=== PATIENT | female | born 1980 | race Caucasian/White ===

== ENCOUNTER → 2017-03-19 | Outpatient (CLI) | payer BC ==
[~2017-03-19] MED LIST: ACHD5005 PO; HYDR1TAB PO; IBP600T1 PO; OMEP-10 PO; RABE20TA PO
--- NOTE | 2017-03-19 10:38 | Diagnostic Imaging Report ---
EXAMINATION: Right breast ultrasound. INDICATION: Right breast lump in the 9 o'clock zone and periareolar region. FINDINGS: There is an oval hypoechoic lesion measuring 0.7 x 0.2 x 0.4 cm with increased through transmission and no internal vascularity with color Doppler, in favor of a complicated cyst. This is at the palpable area at the 9 o'clock zone 7 cm from the nipple. The four-quadrants and retroareolar region demonstrate no significant abnormality otherwise. A breast implant is seen. IMPRESSION: The palpable lesion is a 7 mm elongated hypoechoic lesion at the 9 o'clock zone favored to be a complicated cyst. A 6 month followup ultrasound is recommended to ensure stability. ACR BI-RADS Category 3: Probably benign findings. Dictated by: Dictated on workstation # [id number]
--- NOTE | 2017-03-19 10:49 | Diagnostic Imaging Report ---
EXAMINATION: Bilateral diagnostic mammogram with tomography. The current study was also evaluated with a Computer Aided Detection (CAD) system. COMPARISON: No prior studies are available for comparison. INDICATION: Palpable lump in the lateral aspect of the right breast. FINDINGS: Bilateral symmetric breast implants are seen. The breast tissue is heterogeneously dense which may reduce mammographic sensitivity. There is no mass, architectural distortion, or suspicious cluster of calcifications seen. IMPRESSION: No mammographic evidence of malignancy. The ultrasound evaluation is pending. ACR BI-RADS Category 0: Incomplete. (Needs additional imaging evaluation). Result letter will be mailed to the patient. Note: At least 10% of breast cancer is not imaged by mammography. Dictated by: Dictated on workstation # [id number]
== END ==
LOC: RAD 08:10
PROVIDERS: ATTEND Nurse Practitioner Family
DX: N60.01 Solitary cyst of right breast (principal)
CPT/HCPCS: 76641; 77066

== ENCOUNTER → 2017-04-05 | Outpatient (CLI) | payer BC ==
--- NOTE | 2017-04-05 19:50 | Diagnostic Imaging Report ---
EXAMINATION: Three views of the lumbar spine. INDICATION: Low back pain. FINDINGS: There is satisfactory alignment of the lumbar spine. Minimal right convexity curvature is seen around the thoracolumbar junction. The vertebral body heights are preserved. There are preserved disc heights as well. Surgical clips in the upper right abdomen are seen. The SI joints appear symmetric. IMPRESSION: Minimal right convexity scoliosis centered around the thoracolumbar junction. Dictated by: Dictated on workstation # [id number]
== END ==
LOC: RAD 16:14
PROVIDERS: ATTEND Nurse Practitioner Family
DX: M54.5 Low back pain (principal)
CPT/HCPCS: 72100

== ENCOUNTER → 2017-05-29 | Outpatient (CLI) | payer BC ==
--- NOTE | 2017-05-29 11:48 | Diagnostic Imaging Report ---
PROCEDURE: MRI lumbar spine. TECHNIQUE: Multiplanar, multisequence MRI of the lumbar spine was performed without contrast. INDICATION: Back pain. FINDINGS: The alignment of the posterior spinal line is satisfactory. The vertebral body heights are preserved. Disc heights are also preserved. There is no significant disc desiccation. The bone marrow signal is within normal limits. The cauda equina and conus medullaris appear grossly unremarkable. T12/L1: There is no disc herniation, no spinal canal or foraminal stenosis. L1/2: There is no disc herniation. There is vfeb-ux-xuzvruga facet hypertrophy. No central canal, lateral recess, or foraminal stenosis. L2/3: There is no disc herniation. There is moderate facet hypertrophy. No central canal or lateral recess stenosis. No foraminal narrowing. L3/4: There is no disc herniation. The facet joints demonstrate moderate bilateral hypertrophy. No central canal or lateral recess stenosis. No foraminal stenosis. L4/5: There is a minimal disc bulge, and moderate facet hypertrophy is seen. No central canal stenosis. There is mild bilateral lateral recess stenosis. The foramina demonstrate no significant stenosis. L5/S1: There is a mild disc bulge, and thbv-gk-vuxsxixe facet hypertrophy is seen. There is prominent epidural fat seen with tapering of the thecal sac along the lower aspect of L5 level resulting in crowded appearance of the cauda equina with no significant CSF seen. There is mild bilateral lateral recess stenosis. The foramina demonstrate no significant stenosis. When compared to 09/28/2015, there is increased epidural fat seen around L5/S1 level. IMPRESSION: 1. Epidural lipomatosis at L5/S1 level resulting in tapering of the thecal sac and crowded appearance of the cauda equina nerve roots at this level. 2. Moderate facet hypertrophy in the lower lumbar spine and minimal disc herniations at L4/5 and L5/S1 levels. Dictated by: Dictated on workstation # [id number]
== END ==
LOC: RAD 08:40
PROVIDERS: ATTEND Nurse Practitioner Family
DX: D17.79 Benign lipomatous neoplasm of other sites (principal); M48.07 Spinal stenosis, lumbosacral region; M53.82 Other specified dorsopathies, cervical region
CPT/HCPCS: 72148

== ENCOUNTER → 2017-05-31 | Outpatient (CLI) | payer BC ==
--- NOTE | 2017-06-01 14:59 | Diagnostic Imaging Report ---
EXAM: Nuclear medicine thyroid imaging and uptake. DATE: June 01, 2017. INDICATION: 37-year-old female, abnormal thyroid function tests. COMPARISON: None. FINDINGS: 199 ?Ci of I-123 was administered. Subsequent scintigraphic images of the thyroid were obtained in multiple projections. 6 and 24-hour thyroid uptake rise were obtained. 4 hour thyroid uptake is calculated at 28%. 24-hour thyroid uptake is calculated at 66%. There is diffuse radiotracer uptake throughout the right and left lobes of the thyroid. There is no identified radiotracer avid or photopenic nodule. IMPRESSION: 1. Abnormally increased thyroid uptake values with diffuse iodine uptake by the thyroid gland without identified radiotracer avid or photopenic nodule. Findings may potentially be seen with Graves' disease. Recommend correlation with laboratory analysis. Dictated by: Dictated on workstation # [id number]
== END ==
LOC: CARD 10:54
DX: R94.6 Abnormal results of thyroid function studies (principal)
CPT/HCPCS: 78014

== ENCOUNTER 2018-03-19 13:49 | Outpatient (CLI) | payer BC ==
[~2018-03-19] VITALS: Ht 157.5 cm; Wt 56.7 kg
[2018-03-19] MEDS ORDERED: HYDR-3820 PO (14:08)
== END 2018-03-19 14:12 | disposition home or self-care (01) ==
LOC: PREOP 13:49
PROVIDERS: ATTEND Obstetrics & Gynecology
DX: Z01.818 Encounter for other preprocedural examination (principal)

== ENCOUNTER 2018-03-21 07:40 | Day surgery (SDC) | payer BC ==
[~2018-03-21] VITALS: Ht 157.5 cm; Wt 56.7 kg
[~2018-03-21 07:40] MED LIST changes: +HYDR-3820 PO
[2018-03-21] MEDS ORDERED: BUPIVACAINE 0.25% 30 ML (SENSORCAINE) VIAL ONE (07:54)
[2018-03-21 08:20] VITALS: BP 85/41
[2018-03-21] MEDS ORDERED: fentaNYL INJECTION 100 MCG/2 ML AMP ONE (08:21)
[2018-03-21] MEDS ORDERED: MIDAZOLAM 2 MG/2 ML (VERSED) VIAL ONE (08:21)
[2018-03-21] MEDS: LACTATED RINGERS 1,000 ML IV PRN ×2 (08:22→10:00)
[2018-03-21] MEDS ORDERED: proPOfol 200 MG/20 ML (DIPRIVAN) VIAL IV ONE (08:24)
[2018-03-21] MEDS ORDERED: LIDOCAINE PF 2% 5 ML (XYLOCAINE) VIAL ONE (08:24)
[2018-03-21] MEDS ORDERED: ROCURONIUM 10 MG/ML 5 ML SYRINGE IV ONE (08:24)
[2018-03-21] MEDS ORDERED: FAMOTIDINE 20MG/2ML IV (PEPCID) IV ONE (08:30)
[2018-03-21] MEDS ORDERED: D5 LR IV SOLUTION 1,000 ML IV SCH (09:29)
[2018-03-21] MEDS ORDERED: KETOROLAC 30 MG/ML VIAL IVP ONE (09:30)
[2018-03-21] MEDS ORDERED: ONDANSETRON 4 MG/2 ML (SDV) Z0FRAN IVP PRN ×2 (09:30→10:45)
[2018-03-21] MEDS ORDERED: HYDROcodone/APAP 5 MG/325 MG (LORTAB) TAB PO PRN (09:30)
--- NOTE | 2018-03-21 09:31 | Discharge Inst-Women's Service ---
Discharge Inst-Women's Serv Depart Medication/Instructions New, Converted or Re-Newed RX: RX on Chart Consults/Follow Up Additional Follow Up: Yes Orders/Referrals DR. Conley in 7-10 days Activity Activity: Activity as Tolerated Driving Instructions: No Driving for 1 Week NO SMOKING: NO SMOKING Nothing Inside Vagina: No Douching, No [place], No Tampons Diet Discharge Diet: No Restrictions Symptoms to Report to : Bleeding Excessive, Pain Increased, Fever Over 101 Degrees F, Vaginal Bleeding Increase, Questions/Concerns For Any Problems or Questions: Contact Your Physician Skin/Wound Care Infection Signs and Symptoms: Increased Redness, Foul Odor of Wound, Increased Drainage, Skin Itchy or Has a Rash, Increased Swelling, Temperature Above 101 F Operative Area Clean and Dry: Keep Incision Clean/Dry Stitches/Mt/Dermabond: Dermabond, Care of Stitches Bathing Instructions: AMIRA Lawrence DO Mar 21, 2018 09:31
[2018-03-21] MEDS ORDERED: IBUP-1773 PO (09:32)
[2018-03-21] MEDS ORDERED: ACHD5005 PO (09:32)
--- NOTE | 2018-03-21 09:32 | Progress Note-Pre Operative ---
Pre-Operative Progress Note H&P Reviewed The H&P was reviewed, patient examined and no changes noted. Date Seen by Provider: Mar 21, 2018 Time Seen by Provider: 09:15 Date H&P Reviewed: Mar 21, 2018 Time H&P Reviewed: 09:00 Pre-Operative Diagnosis: CPP, Dysmenorrhea, Endometrial thickening AMIRA CORRAL DO Mar 21, 2018 09:32
[2018-03-21] MEDS ORDERED: SEVOFLURANE (ULTANE) 15 ML INHAL SOLN ONE ×2 (09:56→10:05)
[2018-03-21] MEDS ORDERED: DEXAMETHASONE 10 MG/ML (DECADRON) 1 ML VIAL ONE (09:56)
[2018-03-21] MEDS ORDERED: PHENYLEPHRINE 100 MCG/ML 10 ML (ANESTHESIA) SYR ONE (10:00)
[2018-03-21] MEDS ORDERED: GLYCOPYRROLATE 0.2 MG/ML (ROBINUL) 2 ML VIAL ONE (10:21)
[2018-03-21] MEDS ORDERED: NEOSTIGMINE 1 MG/ML 5 ML SYRINGE ONE (10:21)
[2018-03-21] MEDS ORDERED: MEPERIDINE (DEMEROL) INJ 50 MG/ML IVP ONE (10:45)
[2018-03-21] MEDS ORDERED: morphine INJ 10 MG/ML 1ML (SYR OR VIAL) IVP ONE (10:45)
[2018-03-21] MEDS ORDERED: HYDROmorphone 2 MG/ML VIAL (DILAUDID) IV ONE (10:45)
[2018-03-21] MEDS ORDERED: morphine INJ 10 MG/ML 1ML (SYR OR VIAL) ONE (10:46)
[2018-03-21] MEDS ORDERED: HYDROmorphone 2 MG/ML VIAL (DILAUDID) ONE (11:04)
[2018-03-21 11:35] VITALS: BP 96/51
[2018-03-21 12:05] VITALS: BP 87/41
[2018-03-21 12:35] VITALS: BP 91/40
[2018-03-21 12:55] VITALS: BP 91/40
--- NOTE | 2018-03-21 18:31 | Anesthesia-General Post-Op ---
General Patient Condition Mental Status/LOC: Same as Preop Cardiovascular: Satisfactory Nausea/Vomiting: Absent Respiratory: Satisfactory Pain: Controlled Complications: Absent Post Op Complications Complications None Follow Up Care/Instructions Patient Instructions None needed. Anesthesia/Patient Condition Patient Condition Patient was seen this morning after the procedure and she was doing well, no complaints, stable vital signs, no apparent adverse anesthesia problems. ANDREINA STACY DO Mar 21, 2018 18:31
--- NOTE | 2018-03-21 20:26 | OPERATIVE REPORT ---
DATE OF SERVICE: PREOPERATIVE DIAGNOSIS: A 37-year-old female with chronic pelvic pain and endometrial thickening. POSTOPERATIVE DIAGNOSES: A 37-year-old female with chronic pelvic pain and endometrial thickening plus endometriosis implants of the pelvic peritoneum. PROCEDURE: Laparoscopic cauterization of endometrial implants, dilatation and curettage as well as bilateral salpingectomy. SURGEON: Amira Corral DO TOOL REPAIR TECHNICIAN: KAREN Pace. ANESTHESIA: General endotracheal. ESTIMATED BLOOD LOSS: Minimal. URINE OUTPUT: 100 mL clear at the end of the procedure. FLUIDS: 1600 mL lactated Ringer solution. FINDINGS: A grossly normal appearing external female genitalia, cervix and endometrial tissue. Diffuse peritoneal endometriosis implants of the pelvic peritoneum including the broad ligament ovarian fossa bilaterally as well as the posterior cul-de-sac as well as implants on the ovary itself. SPECIMENS SENT: Bilateral fallopian tubes. INDICATIONS FOR PROCEDURE: This 37-year-old female was a patient that came to my office for a second opinion. She was told to have a hysterectomy by another provider and wanted to know if this was the best case scenario for her. She had never been diagnosed with endometriosis in the past, but based on her chronic pelvic pain symptoms, she had been recommended to do so. I discussed with the patient rather than proceeding directly with hysterectomy to try and attempt more conservative measures first. She had been on suppressive therapy in the past; however, never had laparoscopy to confirm the diagnosis. I discussed with the patient diagnostic laparoscopy with possible bilateral salpingo-oophorectomy, possible bilateral salpingectomy as well as D and C due to some endometrial thickening and some heavy menstrual cycles. The patient was agreeable to do this. All of the risks of the procedure were discussed with the patient in detail including risk of bleeding, infection, damaging surrounding structures including but not limited to bowel, bladder, ureter, kidneys, postoperative expectations, recovery timeframe and the potential for complications and need for reoperation. After all of her questions were answered, consent was obtained in the preoperative area and the patient was taken to the operating room. OPERATIVE REPORT IN DETAIL: Once in the operating room, general anesthesia was found to be adequate. She was placed in dorsal lithotomy position, prepped and draped in normal sterile fashion. I first placed the Prescott catheter using sterile technique and then took my attention to the pelvis where a weighted speculum was inserted to the patient's vagina. A right angle retractor was used to visualize the cervix, which was grasped with coaptation using a long Allis clamp and I then performed a paracervical block at 3 and 9 o'clock position using 0.25% Marcaine, 5 mL were used at each injection site. Care was taken to aspirate before injecting, after which I sound the uterine cavity depth, which was found to be 8 cm. I then gently dilated the cervix using Hegar dilators to approximately 1 cm dilatation, at which point I performed a gentle curettage of the endometrium. I collected tissue as endometrial curettings. I then placed a [employer] uterine manipulator in the endometrial cavity with the setting of a 7 cm cavity depth and deployed the balloon excellent uterine manipulation. I then removed all other instruments from the patient's vagina rather than the manipulator and the Prescott catheter, which was left in place. I then performed a change of gloves. I took my attention to the abdomen where infraumbilically I infiltrated the area using 0.25% Marcaine to make a 5 mm incision and directed the Veress needle through the incision until the intraperitoneal placement was confirmed using saline drop test. I then proceeded with insufflation using CO2 gas. Opening pressure of 5 mmHg was noted. I proceeded to maximum pressure of 15 mmHg, at which point I removed the Veress needle and introduced a 5 mm blunt trocar into the peritoneal cavity, which I am unable to confirm using the laparoscope. Once in place, I am able to place the patient in steep Trendelenburg after a brief scan of the upper abdominal anatomy and found no gross abnormalities. Once I am able to visualize the pelvis, there was diffuse peritoneal endometriosis noted. I placed two separate trocars, one is in the left lower quadrant, one is suprapubic. They were placed in similar fashion. The suprapubic trocar was a 12 mm trocar. The skin was infiltrated using 0.25% Marcaine in both of these spots. Incisions were made using a knife and the trocars were placed under direct visualization of the laparoscope. Once these were in place, I am able to cauterize all of the endometriosis implants. I am able to identify using hook cautery in monopolar style. I then removed the fallopian tubes starting at the proximal isthmic connecting point to the uterus. I bipolar cauterized and transected using the LigaSure and take this down the mesosalpinx to the distal ampullary connection point, which was all made hemostatic using the LigaSure device. I do this bilaterally and remove the tubes through the 12 mm trocar site. Once this was done, there was no active bleeding noted from any of my dissection planes. I copiously irrigated the pelvis using normal saline. There was once again no active bleeding noted and I had the patient taken out of steep Trendelenburg. I removed the smaller trocars under direct visualization of the laparoscope. The 12 mm trocar was left in place. I introduced a 10 mL 0.25% Marcaine for postoperative pain management as well as to release insufflation from the site. I then closed the fascia of the larger trocar site using 0 Vicryl suture in interrupted fashion. I then closed the skin using 4-0 Monocryl running subcuticular. Dermabond was applied to that incision. The other two smaller 5 mm incisions are closed using Dermabond only. Prescott catheter was removed. Kronner uterine manipulator was removed. The patient tolerated the procedure and was taken to recovery area in stable condition. Lap and sponge counts were correct at the end of procedure. Instrument counts were correct as well. Job ID: [id number] DocumentID: [id number] Dictated Date: 03/21/2018 12:27:13 Milling Machine Set Up Operator Date: 03/21/2018 20:26:18 Dictated By: AMIRA CORRAL DO
== END 2018-03-21 12:55 | disposition home or self-care (01) ==
LOC: SDC 07:40
PROVIDERS: ATTEND Obstetrics & Gynecology
DX: N80.3 Endometriosis of pelvic peritoneum (principal); N80.1 Endometriosis of ovary; R93.89 Abnormal findings on diagnostic imaging of other specified body structures; J45.909 Unspecified asthma, uncomplicated; K21.9 Gastro-esophageal reflux disease without esophagitis; F17.210 Nicotine dependence, cigarettes, uncomplicated
CPT/HCPCS: 84703; 86850; 86900; 86901; 87081; 88302; 88305; 94664

== ENCOUNTER 2020-04-15 16:55 | Emergency (ER) | payer BC ==
[~2020-04-15] VITALS: Ht 157.5 cm; Wt 52.2 kg
[~2020-04-15 16:55] MED LIST changes: +ACHYD1T PO; -HYDR-3820 PO; +IBUP-1773 PO
[2020-04-15 17:11] VITALS: BP 103/60
--- NOTE | 2020-04-15 17:39 | ED Integumentary General ---
General Chief Complaint: Skin/Wound Problems Stated Complaint: RASH;ITCHING Nursing Triage Note: PT AMB TO TRIAGE WITH COMPLAINT OF RASH THAT STARTED TWO DAYS AGO. STATES HAD COLD SORE POP UP TWO DAYS AGO ALSO. HAD ACYCLOVIR PRESCRIBED AND STARTED YESTERDAY. 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 History of Present Illness Date Seen by Provider: Apr 15, 2020 Time Seen by Provider: 17:25 Initial Comments 39-year-old female reports severe pruritus to her neck. She is noted small rash to her neck and upper back. She has significant history of different integumentary problems including psoriasis. She has been using hydrocortisone cream with no improvement. She is concerned because she has had MRSA in the past. She had work on her tattoo, right arm. She sees Dr. Cameron and had Botox injections to her lips. She started Acyclovir yesterday for cold sore, but didn't take it today. The itching became worse this afternoon when she got off work. She has not taken any medications for the itching. Timing/Duration: just prior to arrival Severity: mild Location: face, torso Possible Cause: no cause identified Associated Symptoms: denies symptoms Allergies and Home Medications Allergies Coded Allergies: Cephalexin Monohydrate (Verified Allergy, Unknown, 04/11/15) gluten (Verified Allergy, Unknown, 03/19/18) Home Medications Hydrocodone Bit/Acetaminophen 1 Tab Tab, 2 TAB PO Q6HR PRN for PAIN-MODERATE Prescribed by: AMIRA CORRAL on 03/21/18 0932 Ibuprofen 600 Mg Tablet, 600 MG PO Q6H Prescribed by: AMIRA CORRAL on 03/21/18 0932 Mupirocin 22 Gm Oint...g., 22 GM TP TID Prescribed by: HAYDEN HYATT on 04/15/20 1811 Patient Home Medication List Home Medication List Reviewed: Yes Review of Systems Review of Systems Constitutional: no symptoms reported, see HPI Skin: see HPI, rash (chest, neck and upper back) All Other Systems Reviewed Negative Unless Noted: Yes Past Fsnzrkb-Zvelyg-Efrslg Hx Past Med/Social Hx: Reviewed Nursing Past Med/Soc Hx Patient Social History Alcohol Use: Occasionally Uses Number of Drinks Today: AA Alcohol Beverage of Choice: Beer Recreational Drug Use: Yes (clean x 2 years) Drug of Choice: MARIJUANA Type Used: Cigarettes Former Smoker, Quit: Mar 04, 2018 Recent Foreign Travel: No Contact w/Someone Who Travel: No Recent Infectious Disease Expo: No Recent Hopitalizations: No Immunizations Up To Date Tetanus Booster (TDap): Unknown PED Vaccines UTD: Yes Date of Influenza Vaccine: Mar 07, 2018 Seasonal Allergies Seasonal Allergies: Yes Past Medical History Surgeries: Yes (c/s x2, d&c x2, sinus sx, breast augmentation with revision, ) Bladder Surgery, Section, Gallbladder, Tonsillectomy, Tracheostomy Respiratory: No Cardiac: No Neurological: No Reproductive Disorders: Yes Gastrointestinal: Yes Irritable Bowel Musculoskeletal: Yes Fibromyalgia, Chronic Back Pain Endocrine: No Cancer: No Psychosocial: Yes Anxiety, Depression Integumentary: No Blood Disorders: Yes (anemia) Physical Exam Vital Signs Vital Signs - First Documented 04/15/20 17:11 Temp 36.5 Pulse 99 Resp 20 B/P (MAP) 103/60 (74) Pulse Ox 96 O2 Delivery Room Air Capillary Refill : Less Than 3 Seconds General Appearance: WD/WN, no apparent distress Neck: non-tender, full range of motion, supple, normal inspection; No lymphadenopathy (R), No lymphadenopathy (L) Cardiovascular: normal peripheral pulses, regular rate, rhythm Respiratory: chest non-tender, lungs clear Extremities: normal range of motion, non-tender, normal inspection, normal capillary refill Neurologic/Psychiatric: no motor/sensory deficits, alert, normal mood/affect, oriented x 3 Skin: normal color, warm/dry Skin Problem Location: face, torso (Neck and upper back) Skin Problem Character: petechial, urticarial Lymphatic: no adenopathy Progress/Results/Core Measures Results/Orders My Orders Orders - HAYDEN HYATT Diphenhydramine Injection (Benadryl Inje (04/15/20 17:45) Medications Given in ED Current Medications Medications Dose Ordered Sig/Ross Route Start Time Stop Time Status Last Admin Dose Admin Diphenhydramine HCl 50 mg ONCE ONCE IM 04/15/20 17:45 04/15/20 17:46 DC 04/15/20 17:55 50 MG Vital Signs/I&O 04/15/20 17:11 Temp 36.5 Pulse 99 Resp 20 B/P (MAP) 103/60 (74) Pulse Ox 96 O2 Delivery Room Air Blood Pressure Mean: 74 Departure Impression Primary Impression: Rash Additional Impression: Pruritus Disposition: HOME, SELF-CARE Condition: Improved Departure-Patient Inst. Decision time for Depature: 18:05 Referrals: COLLIN DUBOIS MD (PCP/Family) Primary Care Physician Patient Instructions: Skin Rash (DC) Add. Discharge Instructions: Take Benadryl 25 mg every 8 hours as needed for itching. Use antibiotic ointment to areas of concern. You can take Aveeno bath soaks to help with the itching. Follow-up with your primary care provider if symptoms are not improving or worsen. Return to the emergency department for new, urgent health care needs. All discharge instructions reviewed with patient and/or family. Voiced understanding. Scripts Mupirocin (Mupirocin) 22 Gm Oint...g. 22 GM TP TID, #1 TUBE 0 Refills Prov: HAYDEN HYATT 04/15/20 HAYDEN HYATT Apr 15, 2020 17:39
[2020-04-15] MEDS ORDERED: diphenhydrAMINE 50 MG/ML INJ (BENADRYL) IM ONE (17:45)
[2020-04-15] MEDS ORDERED: MUPI22OI2 TP (18:11)
== END 2020-04-15 18:15 | disposition home or self-care (01) ==
LOC: EDUNIT# 16:55 → ER 16:57
DX: R21 Rash and other nonspecific skin eruption (principal); L29.8 Other pruritus; G89.29 Other chronic pain; M54.9 Dorsalgia, unspecified; Z88.1 Allergy status to other antibiotic agents; Z87.891 Personal history of nicotine dependence; Z79.891 Long term (current) use of opiate analgesic
CPT/HCPCS: 99284

== ENCOUNTER 2020-05-06 06:44 | Outpatient (RCR) | payer BC ==
[~2020-05-06 06:44] MED LIST changes: +MUPI22OI2 TP
== END 2020-05-07 09:59 | disposition home or self-care (01) ==
LOC: PREOP 06:44
PROVIDERS: ATTEND Obstetrics & Gynecology
DX: Z01.812 Encounter for preprocedural laboratory examination (principal); N80.9 Endometriosis, unspecified; Z20.828 Contact with and (suspected) exposure to other viral communicable diseases
CPT/HCPCS: 87635

== ENCOUNTER 2020-05-10 06:08 | Day surgery (SDC) | payer BC ==
[2020-05-10] VITALS (10 sets, daily range): BP systolic 91–109; BP diastolic 34–73
[~2020-05-10] VITALS: Ht 157.5 cm; Wt 52.2 kg
[2020-05-10] MEDS ORDERED: LACTATED RINGERS 1,000 ML IV SCH (06:15)
[2020-05-10] MEDS ORDERED: CLINDAMYCIN 900 MG/50 ML IVPB 50 ML IV ONE (06:15)
[2020-05-10] MEDS ORDERED: LACTATED RINGERS 1,000 ML IV PRN (06:15)
[2020-05-10] MEDS ORDERED: MIDAZOLAM 2 MG/2 ML (VERSED) VIAL IV ONE (07:00)
[2020-05-10 07:05] LABS: BASOPHILS # (AUTO) 0.1 10^3/uL (0.0-0.1); BASOPHILS % (AUTO) 1 % (0-10); EOSINOPHILS # (AUTO) 0.1 10^3/uL (0.0-0.3); EOSINOPHILS % (AUTO) 2 % (0-10); HEMATOCRIT 41 % (35-52); LYMPHOCYTES # (AUTO) 2.4 10^3/uL (1.0-4.0); LYMPHOCYTES % (AUTO) 33 % (12-44); MEAN CORPUSCULAR HEMOGLOBIN 31 pg (25-34); MEAN CORPUSCULAR HGB CONC 34 g/dL (32-36); MEAN CORPUSCULAR VOLUME 90 fL (80-99); MEAN PLATELET VOLUME 10.7 fL (9.0-12.2); MONOCYTES # (AUTO) 0.5 10^3/uL (0.0-1.0); MONOCYTES % (AUTO) 7 % (0-12); NEUTROPHILS # (AUTO) 4.2 10^3/uL (1.8-7.8); NEUTROPHILS % (AUTO) 57 % (42-75); PLATELET COUNT 201 10^3/uL (130-400); WHITE BLOOD COUNT 7.4 10^3/uL (4.3-11.0)
[2020-05-10] MEDS ORDERED: BUPIVACAINE 0.25% 30 ML (SENSORCAINE) VIAL ONE ×2 (07:07→07:56)
[2020-05-10] MEDS ORDERED: fentaNYL INJECTION 100 MCG/2 ML AMP ONE (07:08)
[2020-05-10] MEDS ORDERED: MIDAZOLAM 2 MG/2 ML (VERSED) VIAL ONE (07:08)
[2020-05-10] MEDS ORDERED: metroNIDAZOLE 500MG/100ML IVPB 100 ML ONE (07:18)
--- NOTE | 2020-05-10 07:25 | Progress Note-Pre Operative ---
Pre-Operative Progress Note H&P Reviewed The H&P was reviewed, patient examined and no changes noted. Date Seen by Provider: May 10, 2020 Time Seen by Provider: 07:25 Date H&P Reviewed: May 10, 2020 Time H&P Reviewed: 07:25 Pre-Operative Diagnosis: CPP, Endometriosis AMIRA CORRAL DO May 10, 2020 07:25
[2020-05-10] MEDS ORDERED: ZOLPIDEM 5 MG (AMBIEN) TAB PO PRN (07:30)
[2020-05-10] MEDS ORDERED: HYDROcodone/APAP 7.5 MG/325 MG (LORTAB, LORCET PLUS) TABLET PO PRN (07:30)
[2020-05-10] MEDS ORDERED: CHLORASEPTIC LOZENGE MM PRN (07:30)
[2020-05-10] MEDS ORDERED: SIMETHICONE 80 MG (MYLICON) CHEW PO PRN (07:30)
[2020-05-10] MEDS ORDERED: DOCUSATE SODIUM 100 MG (COLACE) CAP PO PRN (07:30)
[2020-05-10] MEDS ORDERED: ANTACID SUSP 30 ML UDC (MYLANTA) PO PRN (07:30)
[2020-05-10] MEDS ORDERED: ONDANSETRON 4 MG/2 ML (SDV) Z0FRAN IV PRN (07:30)
--- NOTE | 2020-05-10 07:37 | Discharge Inst-Women's Service ---
Discharge Inst-Women's Serv Depart Medication/Instructions New, Converted or Re-Newed RX: RX on Chart Problems Reviewed?: Yes Consults/Follow Up Additional Follow Up: Yes Orders/Referrals Dr. Conley in 7-10 days, and in 8 weeks Activity Activity: Activity as Tolerated Driving Instructions: No Driving for 1 Week NO SMOKING: NO SMOKING Nothing Inside Vagina: No Douching, No [place], No Tampons Diet Discharge Diet: No Restrictions Symptoms to Report to : Bleeding Excessive, Pain Increased, Fever Over 101 Degrees F, Vaginal Bleeding Increase, Questions/Concerns For Any Problems or Questions: Contact Your Physician Skin/Wound Care Infection Signs and Symptoms: Increased Redness, Foul Odor of Wound, Increased Drainage, Skin Itchy or Has a Rash, Increased Swelling, Temperature Above 101 F Operative Area Clean and Dry: Keep Incision Clean/Dry Stitches/Mt/Dermabond: Dermabond, Care of Stitches Bathing Instructions: AMIRA Lawrence DO May 10, 2020 07:37
[2020-05-10] MEDS ORDERED: FLUC200T PO (07:40)
[2020-05-10] MEDS ORDERED: LEVO1CAP PO (07:40)
[2020-05-10] MEDS ORDERED: ALPR0.254 PO (07:40)
[2020-05-10] MEDS ORDERED: HYDR-3820 PO (07:40)
[2020-05-10] MEDS ORDERED: FAMO-119 PO (07:40)
[2020-05-10] MEDS ORDERED: DIPH25CA79 PO (07:40)
[2020-05-10] MEDS ORDERED: BUSP15TA60 PO (07:40)
[2020-05-10] MEDS ORDERED: CETI10TA49 PO (07:40)
[2020-05-10] MEDS ORDERED: CHOL400T29 PO (07:40)
[2020-05-10] MEDS ORDERED: TPR25T PO (07:40)
[2020-05-10] MEDS ORDERED: BENZ1LOZ64 MM (07:42)
[2020-05-10] MEDS ORDERED: SIME80TA16 PO (07:42)
[2020-05-10] MEDS ORDERED: HYDR-34 PO (07:42)
[2020-05-10] MEDS ORDERED: IBUP-844 PO (07:42)
[2020-05-10] MEDS ORDERED: DCS100C PO (07:42)
[2020-05-10] MEDS ORDERED: LIDOCAINE PF 2% 5 ML (XYLOCAINE) VIAL ONE (09:16)
[2020-05-10] MEDS ORDERED: proPOfol 200 MG/20 ML (DIPRIVAN) VIAL IV ONE (09:16)
[2020-05-10] MEDS ORDERED: ONDANSETRON 4 MG/2 ML (SDV) Z0FRAN ONE (09:16)
[2020-05-10] MEDS ORDERED: KETOROLAC 30 MG/ML VIAL ONE (09:26)
[2020-05-10] MEDS: LACTATED RINGERS 1,000 ML IV SCH ×2 (09:29→12:56)
[2020-05-10] MEDS: KETOROLAC 30 MG/ML VIAL IV PRN ×2 (09:29→15:48)
[2020-05-10] MEDS ORDERED: fentaNYL INJECTION 100 MCG/2 ML AMP IVP ONE (09:45)
[2020-05-10] MEDS ORDERED: morphine INJ 10 MG/ML 1ML (SYR OR VIAL) IVP ONE (09:45)
[2020-05-10] MEDS ORDERED: ROCURONIUM 10 MG/ML 5 ML SYRINGE IV ONE (09:57)
[2020-05-10] MEDS ORDERED: SEVOFLURANE (ULTANE) 15 ML INHAL SOLN ONE ×2 (09:57→09:59)
--- NOTE | 2020-05-10 10:30 | NUR ---
Report from Kerrie Hopkins RN. Pt resting in bed. Vital signs taken. Physical assessment obtained. Fresh ice water given. SCDs plugged in. No further needs at this time.
--- NOTE | 2020-05-10 14:30 | NUR ---
Catheter removed. Pt up to bathroom with assist to put in contacts. Ice pack refilled. No further needs at this time.
--- NOTE | 2020-05-10 16:30 | NUR ---
Pt up to bathroom and urinating. Fresh tea and ice given to patient. No further needs at this time.
--- NOTE | 2020-05-10 17:26 | OPERATIVE REPORT ---
DATE OF SERVICE: PREOPERATIVE DIAGNOSES: 1. A 40-year-old female with chronic pelvic pain. 2. Dyspareunia. 3. Endometriosis. POSTOPERATIVE DIAGNOSES: 1. A 40-year-old female with chronic pelvic pain. 2. Dyspareunia. 3. Endometriosis. PROCEDURES PERFORMED: Robotic-assisted total laparoscopic hysterectomy with bilateral salpingo-oophorectomy. SURGEON: Rian Corral DO. ANESTHESIA: General endotracheal. ESTIMATED BLOOD LOSS: Minimal. URINE OUTPUT: 400 mL clear at the end of procedure. FLUIDS: 2200 mL lactated Ringer's solution. FINDINGS: Grossly normal-appearing external female genitalia, grossly normal appearing upper abdominal anatomy. The pelvic peritoneum is littered with different implants of endometriosis, both dark and hemosiderin laden as well as endometrioid appearing. This is covering the fallopian tubes, ovaries, posterior cul-de-sac, vesicouterine peritoneum and some implants even noted of the rectum and sigmoid colon. There was an enlargement of the right ovary consistent with a right ovarian cyst. Left ovary appears grossly normal with the exception of some endometriosis implants. SPECIMEN SENT: Uterus, bilateral fallopian tubes and ovaries. INDICATIONS FOR PROCEDURE: This 40-year-old female is a patient, who had sought care in my office over a year ago for chronic pelvic pain and pain with intercourse. Her initial evaluation involved a laparoscopy, which revealed an endometriosis. We discussed at that point due to her age, trying more conservative measures and doing Depot Lupron in the meantime. In the past year, we have attempted Depot Lupron. She had some improvement in her symptoms, but is wanting more definitive therapy. We had extensively counseled her throughout the year about the process of hysterectomy. Risks of the procedure were discussed in the preoperative area including the risk of bleeding, infection, damage to the surrounding structures including, but not limited to bowel, bladder, ureter, kidneys, postoperative complications that may occur, possible need for reoperation, recovery time, risk from anesthesia and even . After everything was discussed with the patient in detail, consent was obtained in the preoperative area and the patient was taken to the operating room. OPERATIVE REPORT IN DETAIL: Once in the operating room, general anesthesia was found to be adequate. She was placed in dorsal lithotomy position, prepped and draped in a normal sterile fashion, where a timeout was performed. A Prescott catheter was placed using a sterile technique. A weighted speculum was inserted to the patient's vagina. A right-angled retractor was used to visualize the cervix, which was grasped at 12 o'clock position using a long Allis clamp and 0 Vicryl suture was then placed at the anterior lip of the cervix and Allis clamp was removed. The Vicryl suture was then used as my retraction point. I then gently sound the uterine cavity, depth was found to be 7 cm. I then selected a 6 cm Venus uterine manipulator tip and a 3 cm colpotomy ring. I advanced the manipulator tip into the uterus deploying the balloon and advanced the colpotomy ring around the vaginal fornix, excellent manipulation was noted on bimanual examination at that point using the Venus uterine manipulator. I then removed all the other instruments from the patient's vagina. I performed change of gloves and took my attention to the abdomen, where supraumbilically, I infiltrated this area using 0.25% Marcaine. I made an 8 mm incision through a previously existing laparoscopic scar using a knife. Once this incision was made, I directed Veress needle through the incision, intraperitoneal placement was confirmed using saline drop test. An opening pressure of 2 mmHg was noted. I proceeded to maximum pressure of 15 mmHg, at which point, I removed the Veress needle and introduced an 8 mm laparoscopic da Adelita camera trocar. Once this was in place, I was able to confirm intraperitoneal placement using da Adelita laparoscope. A brief scan of the upper abdominal anatomy appears to be grossly normal. I then had the patient placed in a steep Trendelenburg, which allowed me to identify all my pelvic anatomy as defined in my findings above. I then placed two lateral trocars approximately 8 cm lateral to my supraumbilical trocar. These were both 8 mm trocars and were placed under similar fashion to my umbilical trocar. Once both these trocars were in place, I brought in the da Adelita robot and docked in an appropriate fashion. I placed the da Adelita vessel sealer in the left hand and monopolar frances in the right hand. I performed the following dissection bilaterally. Before starting the dissection, I identified the ureters on the lateral pelvic sidewall in an attempt to stay clear of these throughout my dissection and removal of the uterus and ovaries. I then identified the infundibulopelvic ligament, I performed the following dissection bilaterally. Starting at the infundibulopelvic ligament, I bipolar cauterized and transected using the vessel sealer. I then grasped the round ligament. I bipolar cauterized and transected this using the vessel sealer. I then grasped the entire broad ligament, which I was able to bipolar cauterized and transected using the vessel sealer down to the level of the lower uterine segment, at which point I the anterior and posterior leaflets of the broad ligament. The anterior leaflet dissection was taken around the anterior vaginal fornix, the posterior leaflet was taken around the posterior vaginal fornix. This allowed me to skeletonize the uterine vessels laterally, which I then bipolar cauterized and transected using a vessel sealer. I then created a colpotomy at 12 o'clock position using monopolar frances and took this circumferentially around the vaginal fornix amputating the cervix, uterus, bilateral fallopian tubes and ovaries from the vagina. The entire specimen was then removed through the vagina. I then closed the lateral vaginal apices of the vaginal cuff using 2-0 Vicryl suture in a [id number] fashion colposuspending the uterosacral ligaments. I then closed the remainder of the vaginal cuff using 2-0 V-Loc in a running fashion, after which there was no active bleeding noted from any of my dissection planes. I then undocked the da Adelita robot and proceeded with the remainder of the case laparoscopically. I copiously irrigated the pelvis using normal saline. Once again, there was no active bleeding noted from any of my dissection planes. I placed FloSeal hemostatic agent over all my planes of dissection and then had the patient taken out of steep Trendelenburg. I removed the lateral trocars under direct visualization of the laparoscope. The supraumbilical trocar was left in place to release insufflation and to introduce 10 mL of 0.25% Marcaine into the peritoneal cavity for postoperative pain management. I then removed this trocar as well. The skin was reapproximated using 4-0 Monocryl in interrupted subcuticular stitches. Dermabond was applied to incision and Band-Aids were placed over the incisions as well. Prescott catheter was left in place. The patient tolerated the procedure well and was taken to the recovery area in a stable condition. Lap and sponge counts were correct at the end of the procedure. Instrument counts were correct as well. A 600 mg of clindamycin and 500 mg of Flagyl were given preoperatively for infection prophylaxis. Job ID: [id number] DocumentID: [id number] Dictated Date: 05/10/2020 10:29:50 Photo Engraver Date: 05/10/2020 17:26:18 Dictated By: RIAN CORRAL DO
[2020-05-10] MEDS ORDERED: diphenhydrAMINE 50 MG/ML INJ (BENADRYL) IVP ONE (17:45)
[2020-05-10] MEDS ORDERED: diphenhydrAMINE 50 MG/ML INJ (BENADRYL) ONE (17:49)
--- NOTE | 2020-05-10 18:30 | NUR ---
Discharge instructions given to pt. Reminded pt to call Dr. Conley's office for follow-up appointment. Medication scripts given to patient. PHS given to patient. Pt verbalizes understanding and signs that discharge instructions were given. IV removed. Tip intact.
--- NOTE | 2020-05-10 18:55 | NUR ---
Pt discharged from unit in stable condition accompanied by this RN.
[2020-05-11] MEDS ORDERED: IBUPROFEN 600 MG (MOTRIN) TAB PO SCH (00:15)
--- NOTE | 2020-05-11 09:53 | Anesthesia-General Post-Op ---
General Patient Condition Mental Status/LOC: Same as Preop Cardiovascular: Satisfactory Nausea/Vomiting: Absent Respiratory: Satisfactory Pain: Controlled Complications: Absent Post Op Complications Complications None Follow Up Care/Instructions Patient Instructions None needed. Anesthesia/Patient Condition Patient Condition Patient is doing well, no complaints, stable vital signs, no apparent adverse anesthesia problems. No complications reported per nursing. RICHARD LEE CRNA May 11, 2020 09:53
== END 2020-05-10 18:55 ==
LOC: SDC 06:08 → WS 10:30 → SDC 18:55
PROVIDERS: ATTEND Obstetrics & Gynecology
DX: N83.201 Unspecified ovarian cyst, right side (principal); N83.202 Unspecified ovarian cyst, left side; G89.29 Other chronic pain; N94.10 Unspecified dyspareunia; N80.3 Endometriosis of pelvic peritoneum; N94.12 Deep dyspareunia; N94.5 Secondary dysmenorrhea; J45.909 Unspecified asthma, uncomplicated; Z79.51 Long term (current) use of inhaled steroids; Z88.1 Allergy status to other antibiotic agents; Z88.8 Allergy status to other drugs, medicaments and biological substances; Z72.0 Tobacco use; Z80.6 Family history of leukemia
CPT/HCPCS: 36415; 84703; 85025; 86850; 86900; 86901; 87081; 94664

== ENCOUNTER 2020-06-21 20:40 | Observation (INO) | payer BC ==
[~2020-06-21] VITALS: Ht 157.5 cm; Wt 51.2 kg
[~2020-06-21 20:40] MED LIST changes: +ALPR0.254 PO; +BENZ1LOZ64 MM; +BUSP15TA60 PO; +CETI10TA49 PO; +CHOL400T29 PO; +DCS100C PO; +DIPH25CA79 PO; +FAMO-119 PO; +FLUC200T PO; +HYDR-34 PO; +HYDR-3820 PO; +IBUP-844 PO; +LEVO1CAP PO; +LORazepam INJ 2 MG/ML (ATIVAN) VIAL ONE; +SIME80TA16 PO; +TPR25T PO
[2020-06-21] MEDS ORDERED: LORazepam INJ 2 MG/ML (ATIVAN) VIAL IVP ONE ×2 (20:45→21:15)
[2020-06-21] MEDS ORDERED: BENZTROPINE 2 MG/2 ML INJ (COGENTIN) AMP IM ONE (20:45)
[2020-06-21] MEDS ORDERED: ONDANSETRON 4 MG/2 ML (SDV) Z0FRAN IM ONE (20:45)
[2020-06-21] MEDS ORDERED: LACTATED RINGERS 1,000 ML IV ONE ×4 (20:52→23:15)
--- NOTE | 2020-06-21 21:09 | ED Psychosocial ---
General Chief Complaint: Substance Abuse Stated Complaint: METH INDUCED PANIC ATTACK Source: patient Exam Limitations: no limitations History of Present Illness Date Seen by Provider: Jun 21, 2020 Time Seen by Provider: 20:40 Initial Comments Patient arrives by EMS with altered mental status. 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 Says she also took an edible. 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 She is having pain all over, uncontrollable movements, nausea and vomiting. She denies any fevers chills diarrhea or sick contacts. She says a few months ago she had a similar episode to this but nowhere near as severe and it went away on its own spontaneously. She thought maybe she had had a heart attack but never got it checked out. She follows with Dr. Dubois for primary care and has hypothyroidism followed by endocrinology. Patient denies suicidal ideation. Allergies and Home Medications Allergies Coded Allergies: Cephalexin Monohydrate (Verified Allergy, Unknown, 04/11/15) gluten (Verified Allergy, Unknown, 03/19/18) Home Medications ALPRAZolam 0.25 Mg Tablet, 0.25 MG PO BID PRN, (Reported) Benzocaine/Menthol 1 Each Lozenge, 1 GEM MM Q3H PRN for SORE THROAT Prescribed by: AMIRA CORRAL on 05/10/20 07 Buspirone HCl 15 Mg Tablet, 15 MG PO TID, (Reported) Cetirizine HCl 10 Mg Tablet, 10 MG PO DAILY, (Reported) Cholecalciferol (Vitamin D3) 10 Mcg Tablet, 10 MCG PO WEEK, (Reported) Docusate Sodium 100 Mg Capsule, 100 MG PO BID PRN for CONSTIPATION-1ST LINE Prescribed by: AMIRA CORRAL on 05/10/20741 Famotidine 20 Mg Tablet, 20 MG PO DAILY, (Reported) Fluconazole 200 Mg Tablet, 200 MG PO DAILY, (Reported) Hydrocodone Bit/Acetaminophen 1 Ea Tablet, 2 EA PO Q6H PRN for Pain-See Instructions Prescribed by: AMIRA CORRAL on 05/10/20741 Ibuprofen 600 Mg Tablet, 600 MG PO Q6H Prescribed by: AMIRA CORRAL on 05/10/20741 Levomefolate/Algal Oil 1 Each Capsule, 1 EACH PO DAILY, (Reported) Mupirocin 22 Gm Oint...g., 22 GM TP TID Prescribed by: HAYDEN HYATT on 04/15/20 1811 Simethicone 80 Mg Tab.chew, 40 MG PO TID PRN for INDIGESTION 2ND LINE Prescribed by: AMIRA CORRAL on 05/10/20 0742 Topiramate 25 Mg Tablet, 25 MG PO DAILY PRN, (Reported) Patient Home Medication List Home Medication List Reviewed: Yes Review of Systems Constitutional: No chills, No diaphoresis EENTM: No ear discharge, No hearing loss, No ear pain Respiratory: No cough, No phlegm, No short of breath Cardiovascular: No chest pain, No edema Gastrointestinal: No abdominal pain, No nausea, No vomiting Genitourinary: No discharge, No dysuria Control/STD Prophylaxis: None Musculoskeletal: No back pain, No joint pain All Other Systems Reviewed Negative Unless Noted: Yes Past Ajuzgws-Odtupu-Qyvsxp Hx Patient Social History Alcohol Use: Occasionally Uses Alcohol Beverage of Choice: Beer Drug of Choice: MARIJUANA; Methamphetamines Smoking Status: Current Everyday Smoker Type Used: Cigarettes Former Smoker, Quit: Mar 04, 2018 Recent Hopitalizations: No Immunizations Up To Date Tetanus Booster (TDap): Unknown PED Vaccines UTD: Yes Date of Influenza Vaccine: Mar 07, 2018 Seasonal Allergies Seasonal Allergies: Yes Past Medical History Surgeries: Yes (c/s x2, d&c x2, sinus sx, breast augmentation with revision, ) Bladder Surgery, Section, Gallbladder, Tonsillectomy, Tracheostomy Respiratory: No Cardiac: No Neurological: No Reproductive Disorders: Yes Gastrointestinal: Yes Irritable Bowel Musculoskeletal: Yes Fibromyalgia, Chronic Back Pain Endocrine: No Cancer: No Psychosocial: Yes Anxiety, Depression Integumentary: No Blood Disorders: Yes (anemia) Physical Exam Vital Signs - First Documented 06/21/20 21:03 Temp 36.3 Pulse 110 Resp 16 B/P (MAP) 103/61 (75) O2 Delivery Room Air Capillary Refill : Height, Weight, BMI Height: 5'2.00" Weight: 125lbs. 0.0oz. [id number]; 21.04 BMI Method: General Appearance: moderate distress, thin HEENT: PERRL/EOMI (4mm), normal ENT inspection, TMs normal, pharynx normal Neck: non-tender, full range of motion, normal inspection Respiratory: lungs clear, normal breath sounds, no respiratory distress, no accessory muscle use Cardiovascular: normal peripheral pulses, regular rate, rhythm, no edema, no gallop, no JVD, no murmur, tachycardia Peripheral Pulses: 2+ Dorsalis Pedis (R), 2+ Left Dors-Pedis (L), 2+ Radial Pulses (R), 2+ Radial Pulses (L) Gastrointestinal: normal bowel sounds, non tender, soft, no organomegaly Extremities: normal range of motion, non-tender, normal inspection, no pedal edema, normal capillary refill Neurologic/Psychiatric: alert, oriented x 3, other (Anxious, agitated affect, uncontrollable jerking dystonic movements all 4 extremities) Appearance/Memory: no memory impairment Behavior/Eye Contact: cooperative, avoids eye contact Thoughts/Hallucinations: no apparent hallucination; No delusions Skin: normal color, diaphoresis (Mild) Progress/Results/Core Measures Results/Orders Lab Results Laboratory Tests Test 06/21/20 20:55 06/21/20 21:17 Range/Units White Blood Count 8.7 4.3-11.0 10^3/uL Red Blood Count 4.31 3.80-5.11 10^6/uL Hemoglobin 13.1 11.5-16.0 g/dL Hematocrit 38 35-52 % Mean Corpuscular Volume 87 80-99 fL Mean Corpuscular Hemoglobin 30 25-34 pg Mean Corpuscular Hemoglobin Concent 35 32-36 g/dL Red Cell Distribution Width 11.5 10.0-14.5 % Platelet Count 291 130-400 10^3/uL Mean Platelet Volume 10.8 9.0-12.2 fL Immature Granulocyte % (Auto) 0 % Neutrophils (%) (Auto) 39 L 42-75 % Lymphocytes (%) (Auto) 50 H 12-44 % Monocytes (%) (Auto) 8 0-12 % Eosinophils (%) (Auto) 3 0-10 % Basophils (%) (Auto) 1 0-10 % Neutrophils # (Auto) 3.4 1.8-7.8 10^3/uL Lymphocytes # (Auto) 4.3 H 1.0-4.0 10^3/uL Monocytes # (Auto) 0.7 0.0-1.0 10^3/uL Eosinophils # (Auto) 0.2 0.0-0.3 10^3/uL Basophils # (Auto) 0.1 0.0-0.1 10^3/uL Immature Granulocyte # (Auto) 0.0 0.0-0.1 10^3/uL Sodium Level 140 135-145 MMOL/L Potassium Level 3.9 3.6-5.0 MMOL/L Chloride Level 101 98-107 MMOL/L Carbon Dioxide Level 23 21-32 MMOL/L Anion Gap 16 H 5-14 MMOL/L Blood Urea Nitrogen 24 H 7-18 MG/DL Creatinine 1.10 0.60-1.30 MG/DL Estimat Glomerular Filtration Rate 55 BUN/Creatinine Ratio 22 Glucose Level 129 H 70-105 MG/DL Calcium Level 9.6 8.5-10.1 MG/DL Corrected Calcium 9.4 8.5-10.1 MG/DL Magnesium Level 2.4 1.6-2.4 MG/DL Total Bilirubin 0.4 0.1-1.0 MG/DL Aspartate Amino Transf (AST/SGOT) 22 5-34 U/L Alanine Aminotransferase (ALT/SGPT) 22 0-55 U/L Alkaline Phosphatase 60 40-136 U/L Total Creatine Kinase 232 H 29-168 U/L Troponin I < 0.028 <0.028 NG/ML Total Protein 7.3 6.4-8.2 GM/DL Albumin 4.3 3.2-4.5 GM/DL Serum Alcohol < 10 <10 MG/DL Urine Color YELLOW Urine Clarity CLEAR Urine pH 6.0 5-9 Urine Specific [place] 1.025 H 1.016-1.022 Urine Protein NEGATIVE NEGATIVE Urine Glucose (UA) NEGATIVE NEGATIVE Urine Ketones NEGATIVE NEGATIVE Urine Nitrite NEGATIVE NEGATIVE Urine Bilirubin NEGATIVE NEGATIVE Urine Urobilinogen 0.2 < = 1.0 MG/DL Urine Leukocyte Esterase NEGATIVE NEGATIVE Urine RBC (Auto) NEGATIVE NEGATIVE Urine RBC 0 /HPF Urine WBC RARE /HPF Urine Squamous Epithelial Cells 2-5 /HPF Urine Renal Epithelial Cells RARE /HPF Urine Crystals NONE /LPF Urine Bacteria TRACE /HPF Urine Casts NONE /LPF Urine Mucus NEGATIVE /LPF Urine Culture Indicated NO Urine Opiates Screen POSITIVE H NEGATIVE Urine Oxycodone Screen NEGATIVE NEGATIVE Urine Methadone Screen NEGATIVE NEGATIVE Urine Propoxyphene Screen NEGATIVE NEGATIVE Urine Barbiturates Screen NEGATIVE NEGATIVE Ur Tricyclic Antidepressants Screen NEGATIVE NEGATIVE Urine Phencyclidine Screen NEGATIVE NEGATIVE Urine Amphetamines Screen POSITIVE H NEGATIVE Urine Methamphetamines Screen POSITIVE H NEGATIVE Urine Benzodiazepines Screen NEGATIVE NEGATIVE Urine Cocaine Screen NEGATIVE NEGATIVE Urine Cannabinoids Screen POSITIVE H NEGATIVE My Orders Orders - TOM CABRERA Lorazepam Injection (Ativan Injection) (06/21/20 20:45) Benztropine Injection (Cogentin Injectio (06/21/20 20:45) Ondansetron Injection (Zofran Injectio (06/21/20 20:45) Lorazepam Injection (Ativan Injection) (06/21/20 20:40) Lactated Ringers (Lr 1000 Ml Iv Solution (06/21/20 20:52) Lorazepam Injection (Ativan Injection) (06/21/20 21:15) Cbc With Automated Diff (06/21/20 21:05) Comprehensive Metabolic Panel (06/21/20 21:05) Creatine Kinase (06/21/20 21:05) Troponin I (06/21/20 21:05) Ekg Tracing (06/21/20 21:05) Continuous Ekg Monitoring (06/21/20 21:05) Ua Culture If Indicated (06/21/20 21:05) Drug Screen Stat (Urine) (06/21/20 21:05) Alcohol (06/21/20 21:05) Magnesium (06/21/20 21:05) Straight Cath For Spec.-Adult (06/21/20 21:05) Chest 1 View, Ap/Pa Only (06/21/20 21:07) Medications Given in ED Current Medications Medications Dose Ordered Sig/Ross Route Start Time Stop Time Status Last Admin Dose Admin Benztropine Mesylate 2 mg ONCE ONCE IM 06/21/20 20:45 06/21/20 20:46 DC 06/21/20 21:15 2 MG Lactated Ringer's 1,000 ml @ ud STK-MED ONCE IV 06/21/20 20:52 06/21/20 20:56 DC 06/21/20 21:15 999 MLS/HR Lorazepam 2 mg ONCE ONCE IVP 06/21/20 21:15 06/21/20 21:16 DC 06/21/20 21:14 2 MG Lorazepam 4 mg ONCE ONCE IVP 06/21/20 20:45 06/21/20 20:46 DC 06/21/20 21:14 4 MG Ondansetron HCl 8 mg ONCE ONCE IM 06/21/20 20:45 06/21/20 20:46 DC 06/21/20 21:13 8 MG Vital Signs/I&O 06/21/20 21:03 Temp 36.3 Pulse 110 Resp 16 B/P (MAP) 103/61 (75) O2 Delivery Room Air Progress Progress Note #1: Time: 21:21 Progress Note 6 mg of Ativan and 2 mg of Cogentin called her down. We have her on end-tidal CO2 and will get some labs and urine. Suspect she had a dystonic reaction related to the meth possibly anxiety aggravated by her cannabis ingestion as well. We will give her a liter of fluids and check a CPK and labs. We will get an EKG and troponin since she claims she had chest pain a few months ago and feels like she was having chest pain tonight. After the Ativan she was much more calm and she denies having any chest pain now. She says she does has pain in her hips where she was given the shot. Progress Note #2: Time: 21:59 Progress Note After liter of fluids the patient is resting comfortably and has good end-tidal CO2 as well as maintaining oxygen saturation 98 to 100% on 2 L by nasal cannula. She is arousable to verbal stimuli. GCS 14. Initial ECG Impression Date: Jun 21, 2020 Initial ECG Impression Time: 20:57 Initial ECG Rate: 108 Initial ECG Rhythm: S.Tach Initial ECG Intervals: Normal Initial ECG Impression: Normal Comment Sinus tachycardia without clinically relevant ST elevation or depression. Diagnostic Imaging Diagonstic Imaging: Xray Plain Films/CT/US/NM/MRI: chest Comments NAME: TIMOTHY PALM [facility] REC#: [id number] PT STATUS: REG ER : 1980 PHYSICIAN: TOM CABRERA MD ADMIT DATE: 06/21/20/ER Signed Date of Exam:06/21/20 CHEST 1 VIEW, AP/PA ONLY INDICATION: Substance abuse, chest pain. FINDINGS: Frontal view of the chest demonstrates the lungs to be clear. The heart, mediastinum and pulmonary vascularity and the visualized bony thorax are normal. IMPRESSION: Negative chest. Dictated by: Dictated on workstation # [id number] Dict: 06/21/202140 Trans: 06/21/202143 [facility] [id number] Interpreted by: TOR FARFAN MD Electronically signed by: TOR FARFAN MD 06/21/202143 Reviewed: Reviewed by Me Departure Communication (Admissions) Time/Spoke to Admitting Phy: 22:00 Discussed the case with Dr. Oshea and she agrees to observe the patient for her overdose. Telemetry sitter and Lovenox. Impression Primary Impression: Drug overdose Qualified Codes: T50.901A - Poisoning by unspecified drugs, medicaments and biological substances, accidental (unintentional), initial encounter Additional Impression: Acute dystonic reaction due to drugs Disposition: ADMITTED INPATIENT Condition: Stable Admissions Decision to Admit Reason: Admit from ER (General) Decision to Admit/Date: Jun 21, 2020 Time/Decision to Admit Time: 22:00 Departure-Patient Inst. Referrals: COLLIN DUBOIS MD (PCP/Family) Primary Care Physician Patient Instructions: ALCOHOL AND SUBSTANCE ABUSE TOM CABRERA Jun 21, 2020 21:09
[2020-06-21 21:11] LABS: BASOPHILS # (AUTO) 0.1 10^3/uL (0.0-0.1); BASOPHILS % (AUTO) 1 % (0-10); EOSINOPHILS # (AUTO) 0.2 10^3/uL (0.0-0.3); EOSINOPHILS % (AUTO) 3 % (0-10); HEMATOCRIT 38 % (35-52); HEMOGLOBIN 13.1 g/dL (11.5-16.0); LYMPHOCYTES # (AUTO) 4.3 10^3/uL (1.0-4.0); LYMPHOCYTES % (AUTO) 50 % (12-44); MEAN CORPUSCULAR HEMOGLOBIN 30 pg (25-34); MEAN CORPUSCULAR HGB CONC 35 g/dL (32-36); MEAN CORPUSCULAR VOLUME 87 fL (80-99); MEAN PLATELET VOLUME 10.8 fL (9.0-12.2); MONOCYTES # (AUTO) 0.7 10^3/uL (0.0-1.0); MONOCYTES % (AUTO) 8 % (0-12); NEUTROPHILS # (AUTO) 3.4 10^3/uL (1.8-7.8); NEUTROPHILS % (AUTO) 39 % (42-75); PLATELET COUNT 291 10^3/uL (130-400); WHITE BLOOD COUNT 8.7 10^3/uL (4.3-11.0)
[2020-06-21 21:14] LABS: ALBUMIN 4.3 GM/DL (3.2-4.5); CHLORIDE 101 MMOL/L (98-107); POTASSIUM 3.9 MMOL/L (3.6-5.0); SODIUM 140 MMOL/L (135-145)
[2020-06-21 21:15] LABS: CALCIUM 9.6 MG/DL (8.5-10.1)
[2020-06-21 21:17] LABS: GLUCOSE 129 MG/DL (70-105); TOTAL PROTEIN 7.3 GM/DL (6.4-8.2)
[2020-06-21 21:18] LABS: BILIRUBIN,TOTAL 0.4 MG/DL (0.1-1.0); CARBON DIOXIDE 23 MMOL/L (21-32)
[2020-06-21 21:20] LABS: ALKALINE PHOSPHATASE 60 U/L (40-136); GFR ESTIMATED 55
[2020-06-21 21:21] LABS: BUN/CREATININE RATIO 22
[2020-06-21 21:23] LABS: ALANINE AMINOTRANSFERASE 22 U/L (0-55); MAGNESIUM 2.4 MG/DL (1.6-2.4)
[2020-06-21 21:24] LABS: CREATINE KINASE 232 U/L (29-168)
[2020-06-21 21:28] LABS: BILIRUBIN,URINE NEGATIVE (NEGATIVE); CLARITY,URINE CLEAR; COLOR,URINE YELLOW; GLUCOSE, URINE (UA) NEGATIVE (NEGATIVE); KETONES,URINE NEGATIVE (NEGATIVE); LEUKOCYTE ESTERASE ,URINE NEGATIVE (NEGATIVE); NITRITE,URINE NEGATIVE (NEGATIVE); PROTEIN,URINE NEGATIVE (NEGATIVE)
[2020-06-21 21:41] LABS: AMPHETAMINE SCREEN, URINE POSITIVE (NEGATIVE); BARBITURATE SCREEN URINE NEGATIVE (NEGATIVE); BENZODIAZEPINES SCREEN URINE NEGATIVE (NEGATIVE); CANNABINOID SCREEN, URINE POSITIVE (NEGATIVE); COCAINE SCREEN URINE NEGATIVE (NEGATIVE); METHADONE STAT NEGATIVE (NEGATIVE); METHAMPHETAMINE SCREEN URINE S POSITIVE (NEGATIVE); OPIATE SCREEN URINE POSITIVE (NEGATIVE); OXYCODONE STAT NEGATIVE (NEGATIVE); PROPOXYPHENE STAT NEGATIVE (NEGATIVE); TRICYCLIC ANTIDEPRESSANTS SCRE NEGATIVE (NEGATIVE)
[2020-06-21 21:42] LABS: BACTERIA,URINE TRACE /HPF; RBC,URINE 0 /HPF; RENAL EPITHELIAL CELLS,URINE RARE /HPF; WBC,URINE RARE /HPF
--- NOTE | 2020-06-21 21:44 | Diagnostic Imaging Report ---
INDICATION: Substance abuse, chest pain. FINDINGS: Frontal view of the chest demonstrates the lungs to be clear. The heart, mediastinum and pulmonary vascularity and the visualized bony thorax are normal. IMPRESSION: Negative chest. Dictated by: Dictated on workstation # [id number]
[2020-06-21 23:28] VITALS: BP 88/56
[2020-06-21] MEDS ORDERED: LORazepam INJ 2 MG/ML (ATIVAN) VIAL IVP PRN (23:45)
[2020-06-21] MEDS ORDERED: ACETAMINOPHEN 325 MG TABLET PO PRN (23:45)
[2020-06-21] MEDS ORDERED: BENZTROPINE 2 MG/2 ML INJ (COGENTIN) AMP IM PRN (23:45)
[2020-06-22] MEDS: LACTATED RINGERS 1,000 ML IV SCH ×2 (00:49→08:47)
[2020-06-22 03:27] VITALS: BP 86/48
[2020-06-22 07:30] VITALS: BP 86/48
[2020-06-22 08:59] LABS: BASOPHILS # (AUTO) 0.1 10^3/uL (0.0-0.1); BASOPHILS % (AUTO) 1 % (0-10); EOSINOPHILS # (AUTO) 0.1 10^3/uL (0.0-0.3); EOSINOPHILS % (AUTO) 3 % (0-10); HEMATOCRIT 35 % (35-52); LYMPHOCYTES # (AUTO) 1.6 10^3/uL (1.0-4.0); LYMPHOCYTES % (AUTO) 29 % (12-44); MEAN CORPUSCULAR HEMOGLOBIN 30 pg (25-34); MEAN CORPUSCULAR HGB CONC 34 g/dL (32-36); MEAN CORPUSCULAR VOLUME 88 fL (80-99); MEAN PLATELET VOLUME 10.4 fL (9.0-12.2); MONOCYTES # (AUTO) 0.4 10^3/uL (0.0-1.0); MONOCYTES % (AUTO) 8 % (0-12); NEUTROPHILS # (AUTO) 3.3 10^3/uL (1.8-7.8); NEUTROPHILS % (AUTO) 60 % (42-75); PLATELET COUNT 200 10^3/uL (130-400); WHITE BLOOD COUNT 5.6 10^3/uL (4.3-11.0)
[2020-06-22] MEDS ORDERED: ENOXAPARIN 40 MG/0.4 ML (LOVENOX) SYR SC SCH (09:00)
[2020-06-22 09:26] LABS: ALANINE AMINOTRANSFERASE 21 U/L (0-55); ALBUMIN 3.3 GM/DL (3.2-4.5); ALKALINE PHOSPHATASE 39 U/L (40-136); BILIRUBIN,TOTAL 0.4 MG/DL (0.1-1.0); BUN/CREATININE RATIO 18; CALCIUM 8.6 MG/DL (8.5-10.1); CARBON DIOXIDE 27 MMOL/L (21-32); CHLORIDE 105 MMOL/L (98-107); CREATININE SERUM 0.84 MG/DL (0.60-1.30); GFR ESTIMATED > 60; GLUCOSE 84 MG/DL (70-105); SODIUM 139 MMOL/L (135-145); TOTAL PROTEIN 5.6 GM/DL (6.4-8.2)
--- NOTE | 2020-06-22 11:31 | Discharge Summary ---
Discharge Summary Hospital Course Was the Problem List Reviewed?: Yes Problems/Dx: (1) Methamphetamine intoxication Status: Acute (2) Acute dystonic reaction due to drugs Status: Acute Hospital Course Date of Admission: Jun 21, 2020 at 22:05 Admission Diagnosis : Methamphetamine intoxication Family Physician/Provider: Dave Dubois MD Date of Discharge: 06/22/20 Discharge Diagnosis: Methamphetamine intoxication Hospital Course: Cuca Vargas is a 40-year-old female who presented with abnormal movements and was admitted with acute methamphetamine intoxication. She had reportedly been clean for several years but had a relapse. She reports that she had been smoking methamphetamine. She may have overdosed as she had not been using again until recently. Her symptoms improved and she was stabilized. She was discharged home in stable condition. She should follow-up with her primary care physician. She was recommended to discontinue use of methamphetamine. Labs and Pending Lab Test: Laboratory Tests 06/21/20 20:55: White Blood Count 8.7, Red Blood Count 4.31, Hemoglobin 13.1, Hematocrit 38, Mean Corpuscular Volume 87, Mean Corpuscular Hemoglobin 30, Mean Corpuscular Hemoglobin Concent 35, Red Cell Distribution Width 11.5, Platelet Count 291, Mean Platelet Volume 10.8, Immature Granulocyte % (Auto) 0, Neutrophils (%) (Auto) 39L, Lymphocytes (%) (Auto) 50H, Monocytes (%) (Auto) 8, Eosinophils (%) (Auto) 3, Basophils (%) (Auto) 1, Neutrophils # (Auto) 3.4, Lymphocytes # (Auto) 4.3H, Monocytes # (Auto) 0.7, Eosinophils # (Auto) 0.2, Basophils # (Auto) 0.1, Immature Granulocyte # (Auto) 0.0, Sodium Level 140, Potassium Level 3.9, Chloride Level 101, Carbon Dioxide Level 23, Anion Gap 16H, Blood Urea Nitrogen 24H, Creatinine 1.10, Estimat Glomerular Filtration Rate 55, BUN/Creatinine Ratio 22, Glucose Level 129H, Calcium Level 9.6, Corrected Calcium 9.4, Magnesium Level 2.4, Total Bilirubin 0.4, Aspartate Amino Transf (AST/SGOT) 22, Alanine Aminotransferase (ALT/SGPT) 22, Alkaline Phosphatase 60, Total Creatine Kinase 232H, Troponin I < 0.028, Total Protein 7.3, Albumin 4.3, Serum Alcohol < 10 06/21/20 21:17: Urine Color YELLOW, Urine Clarity CLEAR, Urine pH 6.0, Urine Specific [place] 1.025H, Urine Protein NEGATIVE, Urine Glucose (UA) NEGATIVE, Urine Ketones NEGATIVE, Urine Nitrite NEGATIVE, Urine Bilirubin NEGATIVE, Urine Urobilinogen 0.2, Urine Leukocyte Esterase NEGATIVE, Urine RBC (Auto) NEGATIVE, Urine RBC 0, Urine WBC RARE, Urine Squamous Epithelial Cells 2-5, Urine Renal Epithelial Cells RARE, Urine Crystals NONE, Urine Bacteria TRACE, Urine Casts NONE, Urine Mucus NEGATIVE, Urine Culture Indicated NO, Urine Opiates Screen POSITIVEH, Urine Oxycodone Screen NEGATIVE, Urine Methadone Screen NEGATIVE, Urine Propoxyphene Screen NEGATIVE, Urine Barbiturates Screen NEGATIVE, Ur Tricyclic Antidepressants Screen NEGATIVE, Urine Phencyclidine Screen NEGATIVE, Urine Amphetamines Screen POSITIVEH, Urine Methamphetamines Screen POSITIVEH, Urine Benzodiazepines Screen NEGATIVE, Urine Cocaine Screen NEGATIVE, Urine Cannabinoids Screen POSITIVEH 06/22/20 08:51: White Blood Count 5.6, Red Blood Count 3.98, Hemoglobin 12.0, Hematocrit 35, Mean Corpuscular Volume 88, Mean Corpuscular Hemoglobin 30, Mean Corpuscular Hemoglobin Concent 34, Red Cell Distribution Width 11.5, Platelet Count 200, Mean Platelet Volume 10.4, Immature Granulocyte % (Auto) 0, Neutrophils (%) (Auto) 60, Lymphocytes (%) (Auto) 29, Monocytes (%) (Auto) 8, Eosinophils (%) (Auto) 3, Basophils (%) (Auto) 1, Neutrophils # (Auto) 3.3, Lymphocytes # (Auto) 1.6, Monocytes # (Auto) 0.4, Eosinophils # (Auto) 0.1, Basophils # (Auto) 0.1, Immature Granulocyte # (Auto) 0.0, Sodium Level 139, Potassium Level 4.0, Chloride Level 105, Carbon Dioxide Level 27, Anion Gap 7, Blood Urea Nitrogen 15, Creatinine 0.84, Estimat Glomerular Filtration Rate > 60, BUN/Creatinine Ratio 18, Glucose Level 84, Calcium Level 8.6, Corrected Calcium 9.2, Total Bilirubin 0.4, Aspartate Amino Transf (AST/SGOT) 29, Alanine Aminotransferase (ALT/SGPT) 21, Alkaline Phosphatase 39L, Total Protein 5.6L, Albumin 3.3 Home Meds Active Dok (Docusate Sodium) 100 Mg Capsule 100 Mg PO BID PRN Simethicone 80 Mg Tab.chew 40 Mg PO TID PRN Chloraseptic Sore Throat Lozng (Benzocaine/Menthol) 1 Each Lozenge 1 Ivonne MM Q3H PRN Ibu (Ibuprofen) 600 Mg Tablet 600 Mg PO Q6H HYDROcodone/APAP 7.5/325 TAB (Acetaminophen/Hydrocodone Bitart) 1 Ea Tablet 2 Ea PO Q6H PRN Mupirocin 22 Gm Oint...g. 22 Gm TP TID Reported ALPRAZolam 0.25 Mg Tablet 0.25 Mg PO BID PRN Vitamin D-400 (Cholecalciferol (Vitamin D3)) 10 Mcg Tablet 10 Mcg PO WEEK Deplin-Algal Oil 15 mg Capsule (Levomefolate/Algal Oil) 1 Each Capsule 1 Each PO DAILY Buspirone HCl 15 Mg Tablet 15 Mg PO TID Topamax (Topiramate) 25 Mg Tablet 25 Mg PO DAILY PRN Benadryl (Diphenhydramine HCl) 25 Mg Capsule 25 Mg PO Zyrtec (Cetirizine HCl) 10 Mg Tablet 10 Mg PO DAILY Pepcid (Famotidine) 20 Mg Tablet 20 Mg PO DAILY Diflucan (Fluconazole) 200 Mg Tablet 200 Mg PO DAILY Assessment/Pt Instructions Stop using methamphetamine. Follow up with your PCP. Discharge Planning: <30 minutes discharge planning Discharge Instructions Discharge Diet: No Restrictions Activity as Tolerated: Yes Discharge Physical Examination Vital Signs Vital Signs Date Time Temp Pulse Resp B/P (MAP) Pulse Ox O2 Delivery O2 Flow Rate FiO2 06/22/20 09:00 100 Room Air 06/22/20 07:30 36.0 65 19 86/48 (61) 06/21/20 23:56 1.00 General Appearance: No Apparent Distress, WD/WN Respiratory: Lungs Clear, Normal Breath Sounds, No Respiratory Distress Cardiovascular: Regular Rate, Rhythm, No Edema, No Murmur Gastrointestinal: Normal Bowel Sounds, Non Tender, Soft Extremity: Normal Inspection, Non Tender, No Pedal Edema Skin: Normal Color, Warm/Dry Neurologic/Psychiatric: Alert, Oriented x3, No Motor/Sensory Deficits, Normal Mood/Affect Allergies: Coded Allergies: Cephalexin Monohydrate (Verified Allergy, Unknown, 04/11/15) gluten (Verified Allergy, Unknown, 03/19/18) Copy Copies To 1: DAVE DUBOIS MD Discharge Summary Date of Admission Jun 21, 2020 at 22:05 Date of Discharge Discharge Date: Jun 22, 2020 Discharge Time: 10:05 Admission Diagnosis Acute methamphetamine intoxication Discharge Diagnosis (1) Methamphetamine intoxication Status: Acute (2) Acute dystonic reaction due to drugs Status: Acute GERMAINE MENA MD Jun 22, 2020 11:31
--- NOTE | 2020-06-22 12:13 | NUR ---
"RD ASSESSMENT PMHx: irritable bowel; fibromyalgia; polysubstance use (methamphetamines; THC; tobacco; ETOH); PT INTERACTION: Received dietary consult for MST score. Note pt has AMS per chart review. Note all diet information for nutrition consult is per Josie RN, or per chart review. Josie states current appetite appears poor. Note no meals have been recorded per chart review. Note pt having issues with nausea and vomiting per ED Provider note. Note no BM has been recorded and pt not currently on bowel regimen per chart review. Note recent 2# wt loss x2mon, per chart review. Note it is difficult to determine if pt meets criteria for malnutrition per ASPEN guidelines. Est. kcal needs: 8051-3995 kcal | 25-30 kcal/kg Est. Pro needs: 41-51 g Pro | 0.8-1.0 g Pro/kg PES STATEMENT: Inadequate oral intake (NI-2.1) related to loss of appetite, nausea, and vomiting, as evidenced by chart review. INTERVENTION: Continue with current diet order of Regular diet. Will continue to follow and reassess as pt needs, intake, and status change. Tiburcio MARC MS RD LD [phone] cell"
--- NOTE | 2020-06-22 13:45 | NUR ---
CM/SS visited with patient for social service consult. Plan: Patient is discharging to home today. DCF: A report will be made to child protection services due to reports of drug use while having a minor in the home. Home: The patient lives at home with her FianceVignesh. She reports that her oldest child is living with her father and going to college while her 10 and 1/2 year old is living in the home. Substance use: The patient reports to currently using substances. She states that she is smoking marijuana and using Methamphetamines. The patient was unclear on how she was using the Meth. The patient reported she "shook up the syringe and put it in her mouth". However, she reported to physician that she smoked it. The patient reports that she always goes outside to use and never does it in the home. NOMI/SS discussed resources and provided a hand out for [facility] outpatient and [facility]. She declined both services at this time. The patient reports she will not do an inpatient rehab stay. Occupation: The patient works at [employer] and has a second job at a bar. Supports: The patient reports that she has her marah and her children. The patient reports that she would see her mother in [place] but was not clear about their current relationship. She stated that she went to stay with her mother after her hysterectomy and that is when she started using again. No further needs. Addendum: 06/22/20 at 1720 by [facility] report ID: [id number]
[2020-06-22 14:24] VITALS: BP 86/48
== END 2020-06-22 14:24 | disposition home or self-care (01) ==
LOC: EDUNIT# 20:40 → ER 20:41 → 4TH 22:05
PROVIDERS: ADMIT Internal Medicine; ATTEND Internal Medicine
DX: T50.901A Poisoning by unspecified drugs, medicaments and biological substances, accidental (unintentional), initial encounter (principal); G89.29 Other chronic pain; F41.9 Anxiety disorder, unspecified; F32.9 Major depressive disorder, single episode, unspecified; F17.210 Nicotine dependence, cigarettes, uncomplicated; Z79.899 Other long term (current) drug therapy; Z88.1 Allergy status to other antibiotic agents; Z91.018 Allergy to other foods
CPT/HCPCS: 51701; 71045; 80053 ×2; 80306; 81000; 82550; 83735; 84484; 85025 ×2; 93005; 99284; G0378; G0480; 36415; 80320

== ENCOUNTER 2022-06-04 15:24 | Emergency (ER) | payer SELFPAY ==
[~2022-06-04] VITALS: Ht 157 cm; Wt 54.5 kg
[~2022-06-04 15:24] MED LIST changes: -DCS100C PO; +DOCU-239 PO; -LORazepam INJ 2 MG/ML (ATIVAN) VIAL ONE
--- NOTE | 2022-06-04 16:04 | ED Back Pain ---
General Chief Complaint: General Problems/Pain Stated Complaint: BACK PAIN Nursing Triage Note: PT STATES SHE WAS LOADING A TRAILER ONTO A HITCH AND GOT HER RT HAND FINGERS CAUGHT BETWEEN TRAILER AND HITCH, PT PULLED HARD CAUSING PAIN IN LOWER BACK. HX OF SPINAL STENOSIS. PT TEARFUL AND CRYING IN WAITING RM, PT ASSISTED ONTO A CART FACE DOWN FOR PT COMFORT Source of Information: Patient Exam Limitations: No Limitations History of Present Illness Date Seen by Provider: Jun 04, 2022 Time Seen by Provider: 16:04 Initial Comments 42 y/o female presents today with c/o severe right lower back pain and right index finger pain/swelling. Pt states she got her finger stuck between trailer and hitch of truck, pulled really hard to get her finger out and while doing so, twisted her lower back and felt a "pop" in the right low back. Pt rates pain 10/10. She did not take anything for pain prior to arrival Location: Paraspinous Muscles Timing/Duration: 1 Hour, Constant Severity: Severe Pain/Injury Location: Back, Other (right index finger) Radiation: Other (denies) Method of Injury: Other (twisted back while trying to get hand out from between trailer and hitch) Modifying Factors: Worse With Movement Associated Symptoms: No fever, No weakness, No numbness in legs/feet, No tingling in legs/feet, No sensory/motor loss; lower back pain; No loss of bladder control, No loss of bowel control Allergies and Home Medications Allergies Coded Allergies: Cephalexin Monohydrate (Verified Allergy, Unknown, 04/11/15) gluten (Verified Allergy, Unknown, 03/19/18) Patient Home Medication List Home Medication List Reviewed: Yes ALPRAZolam (ALPRAZolam) 0.25 Mg Tablet, 0.25 MG PO BID PRN, (Reported) Entered as Reported by: LANETTE VENTURA on 05/10/20 07 Benzocaine/Menthol (Chloraseptic Sore Throat Lozng) 1 Each Lozenge, 1 GEM MM Q3H PRN for SORE THROAT Prescribed by: AMIRA CORRAL on 05/10/20 0742 Buspirone HCl (Buspirone HCl) 15 Mg Tablet, 15 MG PO TID, (Reported) Entered as Reported by: LANETTE VENTURA on 05/10/20 0740 Cetirizine HCl (Zyrtec) 10 Mg Tablet, 10 MG PO DAILY, (Reported) Entered as Reported by: LANETTE VENTURA on 05/10/20739 Cholecalciferol (Vitamin D3) (Vitamin D-400) 10 Mcg Tablet, 10 MCG PO WEEK, (Reported) Entered as Reported by: LANETTE VENTURA on 05/10/20739 Diphenhydramine HCl (Benadryl) 25 Mg Capsule, 25 MG PO, (Reported) Entered as Reported by: LANETTE VENTURA on 05/10/20739 Famotidine (Pepcid) 20 Mg Tablet, 20 MG PO DAILY, (Reported) Entered as Reported by: LANETTE VENTURA on 05/10/20739 Levomefolate/Algal Oil (Deplin-Algal Oil 15 mg Capsule) 1 Each Capsule, 1 EACH PO DAILY, (Reported) Entered as Reported by: LANETTE VENTURA on 05/10/20739 Topiramate (Topamax) 25 Mg Tablet, 25 MG PO DAILY PRN, (Reported) Entered as Reported by: LANETTE VENTURA on 05/10/20739 Review of Systems Constitutional: no symptoms reported EENTM: no symptoms reported Respiratory: no symptoms reported Cardiovascular: no symptoms reported Gastrointestinal: no symptoms reported Genitourinary: no symptoms reported Musculoskeletal: back pain; No gout; joint pain; No joint swelling; muscle pain, muscle stiffness, muscle cramps; No muscle twitching, No muscle weakness, No neck pain Skin: no symptoms reported Psychiatric/Neurological: No Symptoms Reported Past Mugjovh-Llyswa-Ygdhyz Hx Immunizations Up To Date Tetanus Booster (TDap): Unknown PED Vaccines UTD: Yes Seasonal Allergies Seasonal Allergies: Yes Past Medical History Surgeries: Yes (c/s x2, d&c x2, sinus sx, breast augmentation with revision, ) Bladder Surgery, Section, Gallbladder, Tonsillectomy, Tracheostomy Respiratory: No Cardiac: No Neurological: No Reproductive Disorders: Yes Gastrointestinal: Yes Irritable Bowel Musculoskeletal: Yes Fibromyalgia, Chronic Back Pain Endocrine: No Cancer: No Psychosocial: Yes Anxiety, Depression Integumentary: No Blood Disorders: Yes (anemia) Physical Exam Vital Signs Vital Signs - First Documented 06/04/22 15:59 Temp 36.9 Pulse 90 Resp 24 B/P (MAP) 91/52 (65) Pulse Ox 99 O2 Delivery Room Air Capillary Refill : Less Than 3 Seconds Height, Weight, BMI Height: 5'2.00" Weight: 125lbs. 0.0oz. 56.894249kq; 22.00 BMI Method: General Appearance: WD/WN, Other (patient crying/moaning) Neck: Full Range of Motion, Normal Inspection, Non Tender, Supple Cardiovascular: Regular Rate, Rhythm Respiratory: Chest Non Tender, Lungs Clear, Normal Breath Sounds Gastrointestinal: Normal Bowel Sounds, No Organomegaly, Non Tender, Soft Back: No CVA Tenderness, No Vertebral Tenderness, Decreased Range of Motion (limited due to pain), Other (right lumbosacral paraspinal muscle TTP) Extremity: Normal Capillary Refill, Normal Range of Motion, Other (distal right 2nd finger is swollen and TTP over ) Neurologic/Psychiatric: Alert, Oriented x3, No Motor/Sensory Deficits Skin: Normal Color, Warm/Dry Progress/Results/Core Measures Results/Orders My Orders Orders - ERIC CARTER APRN Finger(S) (06/04/22 16:07) Ketorolac Injection (Toradol Injection) (06/04/22 16:15) Diphenhydramine Injection (Benadryl Inje (06/04/22 16:15) Cyclobenzaprine Tablet (Flexeril Tablet) (06/04/22 16:15) Tramadol Tablet (Ultram Tablet) (06/04/22 17:15) Rx-Cyclobenzaprine Tablet (Rx-Flexeril T (06/04/22 18:00) Rx-Hydrocodone/Apap 5-325 Mg (Rx-Vicodin (06/04/22 18:00) Medications Given in ED Current Medications Medications Dose Ordered Sig/Ross Route Start Time Stop Time Status Last Admin Dose Admin Acetaminophen/ Hydrocodone Bitart 1 ea Q6H PRN PO 06/04/22 18:00 06/04/22 18:07 DC 06/04/22 18:00 1 EA Cyclobenzaprine HCl 10 mg ONCE ONCE PO 06/04/22 16:15 06/04/22 16:16 DC 06/04/22 16:20 10 MG Cyclobenzaprine HCl 10 mg TID PRN PO 06/04/22 18:00 06/04/22 18:07 DC 06/04/22 18:00 10 MG Diphenhydramine HCl 25 mg ONCE ONCE IM 06/04/22 16:15 06/04/22 16:16 DC 06/04/22 16:20 25 MG Ketorolac Tromethamine 60 mg ONCE ONCE IM 06/04/22 16:15 06/04/22 16:16 DC 06/04/22 16:20 60 MG Tramadol HCl 50 mg ONCE ONCE PO 06/04/22 17:15 06/04/22 17:16 DC 06/04/22 17:31 50 MG Vital Signs/I&O 06/04/22 06/04/22 15:59 18:02 Temp 36.9 36.9 Pulse 90 74 Resp 24 18 B/P (MAP) 91/52 (65) 104/60 Pulse Ox 99 99 O2 Delivery Room Air Room Air Blood Pressure Mean: 65 Progress Progress Note : Progress Note Pt was given toradol, benadryl, and cyclobenzaprine for back pain with some improvement, but still rates pain 7/10. She was then given tramadol. On reexam, she was laying comfortably on her side using her cell phone and reports pain 4/10. Diagnostic Imaging Diagonstic Imaging: Xray Plain Films/CT/US/NM/MRI: other (right 2nd finger) Comments no acute findings Departure Impression Primary Impression: Low back strain Additional Impression: Contusion of finger of right hand Disposition: 01 HOME, SELF-CARE Condition: Improved Departure-Patient Inst. Decision time for Depature: 17:48 Referrals: NO,LOCAL PHYSICIAN (PCP/Family) Primary Care Physician Patient Instructions: Common Finger Injuries (DC), Back Muscle Strain (DC) Add. Discharge Instructions: Tylenol 500mg every 4 hours as needed. Ibuprofen 800mg every 8 hours as needed. Cyclobenzaprine three times daily as needed--do not drive or drink alcohol while taking this medication. [place] every 6 hours as needed for moderate-severe pain. No lifting greater than 10 pounds until pain has completely resolved. Avoid repetitive twisting, bending, squatting. Heat to affected area three times daily for 20 minutes and as needed. Follow up with PCP this week for recheck. Follow up with any new/worsening concerns All discharge instructions reviewed with patient and/or family. Voiced understanding. ERIC CARTER APRN Jun 04, 2022 16:04
[2022-06-04] MEDS ORDERED: CYCLOBENZAPRINE 10 MG (FLEXERIL) TAB PO ONE (16:15)
[2022-06-04] MEDS ORDERED: KETOROLAC 60 MG/2 ML VIAL IM ONE (16:15)
[2022-06-04] MEDS ORDERED: diphenhydrAMINE 50 MG/ML INJ (BENADRYL) IM ONE (16:15)
--- NOTE | 2022-06-04 16:28 | Diagnostic Imaging Report ---
EXAM: Finger(s) INDICATION: Right index finger pain and swelling. Trauma. COMPARISON: None. FINDINGS/ IMPRESSION: No fracture or malalignment. Soft tissue shadows are unremarkable. Dictated by: Dictated on workstation # [id number]
[2022-06-04] MEDS ORDERED: RX-CYCLOBENZAPRINE 10 MG (FLEXERIL) TAB PPK#3 PO PRN (18:00)
[2022-06-04 18:02] VITALS: BP 104/60
== END 2022-06-04 18:03 | disposition home or self-care (01) ==
LOC: EDUNIT# 15:24 → ER 15:25
DX: S39.012A Strain of muscle, fascia and tendon of lower back, initial encounter (principal); S60.021A Contusion of right index finger without damage to nail, initial encounter; Z28.310 Unvaccinated for COVID-19; W23.0XXA Caught, crushed, jammed, or pinched between moving objects, initial encounter; X50.1XXA Overexertion from prolonged static or awkward postures, initial encounter
CPT/HCPCS: 73140